=== PATIENT | female | born 1970 | race Caucasian/White ===

== ENCOUNTER → 2024-12-14 11:04 | Outpatient (REF) | payer OTHER, SELFPAY | LOC: HWRAD 11:04 | PROVIDERS: ATTENDING PHYSICIAN Registered Nurse | DX: C73 Malignant neoplasm of thyroid gland (principal) | CPT/HCPCS: 76536 ==

== ENCOUNTER 2025-04-03 06:19 | Day surgery (SDC) | payer OTHER, SELFPAY | END 2025-04-03 09:12 | disposition home or self-care (01) | LOC: GI 06:19 | PROVIDERS: ATTENDING PHYSICIAN Internal Medicine | DX: Z12.11 Encounter for screening for malignant neoplasm of colon (principal); D12.5 Benign neoplasm of sigmoid colon; K63.5 Polyp of colon | CPT/HCPCS: 45385; 88305 ==